=== PATIENT | male | born 1945 | race Caucasian/White ===

== ENCOUNTER → 2017-06-17 | Outpatient (CLI) | payer MEDICARE, OTHER | END | disposition home or self-care (01) | LOC: C/S 10:49 | DX: R51 Headache (principal); I10 Essential (primary) hypertension; E11.8 Type 2 diabetes mellitus with unspecified complications | CPT/HCPCS: 70450 ==

== ENCOUNTER 2017-12-17 03:29 | Inpatient (IN) | payer MEDICARE, OTHER ==
[2017-12-17 03:38] LABS: ADD MAN DIFF? NO
[2017-12-17 03:39] LABS: BASOPHILS % 0.9 % (0.0-2.0); EOSINOPHILS # 0.2 10^3/ul (0.0-0.5); EOSINOPHILS % 5.3 % (0.0-7.0); HEMATOCRIT 37.4 % (42.0-52.0); HEMOGLOBIN 12.5 g/dl (14.0-18.0); LYMPHOCYTES # 1.4 10^3/ul (0.8-2.9); LYMPHOCYTES % 31.4 % (15.0-51.0); MEAN CORPUSCULAR HEMOGLOBIN 30.6 pg (29.0-33.0); MEAN CORPUSCULAR HGB CONC 33.4 g/dl (32.0-37.0); MEAN CORPUSCULAR VOLUME 91.7 fl (82.0-101.0); MEAN PLATELET VOLUME 10.8 fl (7.4-10.4); MONOCYTE # 0.6 10^3/ul (0.3-0.9); MONOCYTES % 12.2 % (0.0-11.0); NEUTROPHIL # 2.2 10^3/ul (1.6-7.5); NEUTROPHILS % 49.1 % (39.0-77.0); PLATELET COUNT 203 10^3/UL (140-415); RED BLOOD COUNT 4.08 10^6/ul (4.70-6.10); RED CELL DISTRIBUTION WIDTH 13.2 % (11.5-14.5)
[2017-12-17 03:39] LABS: WHITE BLOOD COUNT 4.5 10^3/ul (4.8-10.8)
[2017-12-17 03:56] LABS: ANION GAP 11 (5-13); BLOOD UREA NITROGEN 30 mg/dl (7-20); CALCIUM 9.4 mg/dl (8.4-10.2); CARBON DIOXIDE 23 mmol/L (21-31); CHLORIDE 110 mmol/L (97-110); CHOL/HDL RATIO 7.3 RATIO; CHOLESTEROL 301 mg/dl (100-200); CREATINE KINASE 157 IU/L (23-200); CREATININE 1.47 mg/dl (0.61-1.24); GLUCOSE 157 mg/dl (70-220); HDL CHOLESTEROL 41 mg/dl (31-75); LDL CHOLESTEROL,CALCULATED 219 mg/dl; POTASSIUM 4.5 mmol/L (3.5-5.1); SODIUM 144 mmol/L (135-144); TRIGLYCERIDES 206 mg/dl (0-149)
[2017-12-17 03:58] LABS: HEMOGLOBIN A1C 8.4 % (0-5.9)
[2017-12-17 03:58] LABS: INR 0.93; PROTIME 12.5 Sec (11.9-14.9)
[2017-12-17 04:00] LABS: ETHANOL < 10.0 mg/dl
[2017-12-17 04:08] LABS: CK-MB 3.11 ng/ml (0.0-2.4); TROPONIN-I < 0.012 ng/ml (0.000-0.120)
[2017-12-17 04:20] LABS: ADD UMIC YES; UR ASCORBIC ACID NEGATIVE (NEGATIVE); UR BACTERIA FEW /HPF (NONE SEEN); UR BILIRUBIN (Dip) NEGATIVE (NEGATIVE); UR BLOOD (Dip) 1+ mg/dL (NEGATIVE); UR CLARITY CLEAR (CLEAR); UR COLOR STRAW (YELLOW); UR GLUCOSE (Dip) 1+ mg/dL (NEGATIVE); UR KETONES (Dip) NEGATIVE (NEGATIVE); UR LEUKOCYTE ESTERASE (Dip) NEGATIVE Leu/ul (NEGATIVE); UR MUCUS FEW /HPF (NONE SEEN); UR NITRITE (Dip) NEGATIVE (NEGATIVE); UR RBC 1 /HPF (0-5); UR SPECIFIC GRAVITY (Dip) 1.009 (1.003-1.030); UR TOTAL PROTEIN (Dip) NEGATIVE (NEGATIVE); UR UROBILINOGEN (Dip) NEGATIVE (NEGATIVE); UR WBC 0 /HPF (0-5)
[2017-12-17 04:32] LABS: AMPHETAMINE/METHAMPHETAMINE Negative (NEGATIVE); BARBITURATES Negative (NEGATIVE); BENZODIAZEPINES Negative (NEGATIVE); CANNABINOIDS Negative (NEGATIVE); COCAINE Negative (NEGATIVE); OPIATES Negative (NEGATIVE)
[2017-12-17] MEDS: SOD CHLORIDE 0.9% 100 ML (04:42)
[2017-12-17] MEDS: IODIXANOL LOCM 100 ML BTL (04:43)
[2017-12-17] MEDS ORDERED: ACETAMINOPHEN 325 MG TAB PO (06:00)
[2017-12-17] MEDS ORDERED: ONDANSETRON 4 MG INJ IV (06:00)
[2017-12-17] MEDS ORDERED: DEXTROSE 50% 50 ML SYRINGE IV ×2 (11:30)
[2017-12-17] MEDS ORDERED: GLUCAGON 1 MG INJ IM (11:30)
[2017-12-17] MEDS ORDERED: GLUCOSE GEL 15 GRAM TUBE BUCCAL (11:30)
[2017-12-17] MEDS ORDERED: GLUCOSE GEL 15 GRAM TUBE PO ×2 (11:30)
[2017-12-17] MEDS: INSULIN ASPART [NOVOLOG] 3 ML PEN SC ×3 (11:47→21:00)
[2017-12-17] MEDS: DEXTROSE 5%-0.45% NACL 1,000 ML IV (12:12)
[2017-12-17] MEDS: ENOXAPARIN 40 MG/0.4 ML SYG SC (14:19)
[2017-12-18] MEDS: hydrALAzine 20 MG INJ IV ×2 (04:12→20:27)
[2017-12-18] MEDS: PANTOPRAZOLE 40 MG INJ IV (05:56)
[2017-12-18 06:28] LABS: ADD MAN DIFF? NO
[2017-12-18 06:33] LABS: WHITE BLOOD COUNT 7.1 10^3/ul (4.8-10.8)
[2017-12-18 06:33] LABS: BASOPHILS % 0.4 % (0.0-2.0); EOSINOPHILS # 0.1 10^3/ul (0.0-0.5); EOSINOPHILS % 1.4 % (0.0-7.0); HEMOGLOBIN 12.8 g/dl (14.0-18.0); LYMPHOCYTES # 1.2 10^3/ul (0.8-2.9); LYMPHOCYTES % 16.3 % (15.0-51.0); MEAN CORPUSCULAR HEMOGLOBIN 30.5 pg (29.0-33.0); MEAN CORPUSCULAR HGB CONC 33.7 g/dl (32.0-37.0); MEAN CORPUSCULAR VOLUME 90.7 fl (82.0-101.0); MONOCYTE # 0.8 10^3/ul (0.3-0.9); MONOCYTES % 10.6 % (0.0-11.0); NEUTROPHILS % 70.9 % (39.0-77.0); PLATELET COUNT 207 10^3/UL (140-415); RED BLOOD COUNT 4.19 10^6/ul (4.70-6.10); RED CELL DISTRIBUTION WIDTH 13.4 % (11.5-14.5)
[2017-12-18 07:15] LABS: ANION GAP 10 (5-13); BLOOD UREA NITROGEN 27 mg/dl (7-20); CARBON DIOXIDE 22 mmol/L (21-31); CHLORIDE 110 mmol/L (97-110); CHOL/HDL RATIO 12.5 RATIO; CHOLESTEROL 314 mg/dl (100-200); CREATININE 1.16 mg/dl (0.61-1.24); GLUCOSE 153 mg/dl (70-220); HDL CHOLESTEROL 25 mg/dl (31-75); LDL CHOLESTEROL,CALCULATED 221 mg/dl; SODIUM 142 mmol/L (135-144); TRIGLYCERIDES 340 mg/dl (0-149)
[2017-12-18 07:25] LABS: POTASSIUM 4.1 mmol/L (3.5-5.1)
[2017-12-18] MEDS: INSULIN ASPART [NOVOLOG] 3 ML PEN SC ×5 (07:29→20:36)
[2017-12-18] MEDS: ENOXAPARIN 40 MG/0.4 ML SYG SC (08:29)
[2017-12-18] MEDS: DEXTROSE 5%-0.45% NACL 1,000 ML IV (12:09)
[2017-12-19] MEDS: INSULIN ASPART [NOVOLOG] 3 ML PEN SC ×6 (00:51→21:21)
[2017-12-19] MEDS: PANTOPRAZOLE 40 MG INJ IV (05:12)
[2017-12-19] MEDS ORDERED: ROCURONIUM 50 MG INJ ×2 (07:00→23:50)
[2017-12-19] MEDS ORDERED: ASPIRIN 81 MG TAB NGT (09:00)
[2017-12-19] MEDS: hydrALAzine 20 MG INJ IV ×2 (11:38→18:29)
[2017-12-19] MEDS: ENOXAPARIN 40 MG/0.4 ML SYG SC (11:40)
[2017-12-19] MEDS: METOPROLOL 5 MG INJ IV (17:12)
[2017-12-19 19:03] LABS: AMMONIA 21 umol/l (9-30)
[2017-12-19] MEDS: SOD CHLORIDE 0.45% 1,000 ML IV (20:56)
[2017-12-19] MEDS: CLONIDINE 0.1 MG/24 HR PATCH TRANSDERM (20:57)
[2017-12-19] MEDS ORDERED: ETOMIDATE 20 MG INJ (23:50)
[2017-12-19] MEDS ORDERED: CEFAZOLIN 1 GM INJ (23:50)
[2017-12-19] MEDS ORDERED: MIDAZOLAM 1 MG/ML 2 ML INJ (23:50)
[2017-12-19] MEDS ORDERED: PHENYLephrine (100 MCG/ML) 5ML SYG (23:51)
[2017-12-20] MEDS ORDERED: FENTAnyl 50 MCG/ML VIAL IV ×3
[2017-12-20] MEDS ORDERED: ALBUMIN HUMAN 5% 250 ML IV
[2017-12-20] MEDS ORDERED: METOCLOPRAMIDE 10 MG INJ IV
[2017-12-20] MEDS ORDERED: EPHEDrine SULFATE 50 MG/5 ML SYG IV
[2017-12-20] MEDS ORDERED: LABETALOL HCL 20MG INJ IV
[2017-12-20] MEDS ORDERED: DIPHENHYDRAMINE 50 MG INJ IV
[2017-12-20] MEDS ORDERED: MEPERIDINE 25 MG INJ IV
[2017-12-20] MEDS ORDERED: HYDROmorphONE 0.5 MG/0.5 ML SYG IV ×3
[2017-12-20] MEDS ORDERED: hydrALAzine 20 MG INJ IV
[2017-12-20] MEDS ORDERED: LABETALOL HCL 20MG INJ (00:30)
[2017-12-20] MEDS ORDERED: LIDOCAINE 1%/EPI 30 ML INJ (00:46)
[2017-12-20] MEDS ORDERED: ONDANSETRON 4 MG INJ (00:51)
[2017-12-20] MEDS ORDERED: DEXAMETHASONE 4 MG/ML 1 ML INJ (00:51)
[2017-12-20] MEDS ORDERED: METOCLOPRAMIDE 10 MG INJ (00:51)
[2017-12-20] MEDS ORDERED: ACETAMINOPHEN 1000MG/100ML IV 100 ML (00:52)
[2017-12-20] MEDS ORDERED: GELATIN SIZE 100 SPONGE (01:15)
[2017-12-20] MEDS ORDERED: THROMBIN 5000 UNIT VIAL (01:15)
[2017-12-20] MEDS ORDERED: PHENYLephrine (100 MCG/ML) 5ML SYG ×2 (01:44→02:38)
[2017-12-20] MEDS ORDERED: ALBUMIN HUMAN 5% 500 ML (01:56)
[2017-12-20] MEDS ORDERED: ACCU-CHEK XX (02:00)
[2017-12-20] MEDS ORDERED: NEOMYC/POLYMYX/BACIT 30 GM OINT (02:09)
[2017-12-20] MEDS ORDERED: EPHEDrine SULFATE 50 MG/5 ML SYG (02:15)
[2017-12-20 02:22] LABS: IMMEDIATE SPIN CROSSMATCH 1 4
[2017-12-20] MEDS ORDERED: CEFAZOLIN 1 GM INJ (02:36)
[2017-12-20] MEDS ORDERED: HYDROmorphONE 2 MG/ML SYG (03:12)
[2017-12-20] MEDS ORDERED: hydrALAzine 20 MG INJ (03:12)
[2017-12-20] MEDS ORDERED: ONDANSETRON 4 MG INJ IV ×2 (04:00)
[2017-12-20] MEDS: METOPROLOL 5 MG INJ IV ×4 (06:00→17:29)
[2017-12-20] MEDS ORDERED: DEXTROSE 50% 50 ML SYRINGE IV ×2 (06:00)
[2017-12-20 06:32] LABS: AADO2 Arterial 95.8 mmHg (7.0-24.0); Arterial Base Excess -6.8 mmol/L (-3.0-3); Arterial COHb 0.4 % (0.0-3.0); Arterial Fraction of Oxyhgb 97.2 % (93.0-99.0); Arterial HCO3 19.8 mmol/L (22.0-26.0); Arterial MetHb 0.4 % (0.0-1.5); Arterial Total Hemglobin 12.3 g/dl (12.0-18.0); Arterial pCO2 43.9 mmhg (35-45); MODE VENT - AC; Site A-Line
[2017-12-20] MEDS: INSULIN HUMAN REGULAR 100 UNIT in SOD CHLORIDE 0.9% 99 ML IV (06:47)
[2017-12-20] MEDS: PANTOPRAZOLE 40 MG INJ IV (06:51)
[2017-12-20] MEDS: CEFAZOLIN 1 GM/50 ML (PMX) 50 ML IVPB ×3 (06:51→17:49)
[2017-12-20] MEDS: ACCU-CHEK XX ×18 (06:55→23:29)
[2017-12-20] MEDS: INSULIN REGULAR, HUMAN 100 UNIT/1 ML 3ML VIAL SC (07:00)
[2017-12-20 07:37] LABS: ADD MAN DIFF? NO
[2017-12-20 07:41] LABS: ABNORMAL IP MESSAGE 1; BASOPHILS % 0.1 % (0.0-2.0); HEMATOCRIT 26.4 % (42.0-52.0); HEMOGLOBIN 8.8 g/dl (14.0-18.0); LYMPHOCYTES # 0.4 10^3/ul (0.8-2.9); LYMPHOCYTES % 3.8 % (15.0-51.0); MEAN CORPUSCULAR HEMOGLOBIN 31.4 pg (29.0-33.0); MEAN CORPUSCULAR HGB CONC 33.3 g/dl (32.0-37.0); MEAN CORPUSCULAR VOLUME 94.3 fl (82.0-101.0); MEAN PLATELET VOLUME 11.3 fl (7.4-10.4); MONOCYTE # 0.6 10^3/ul (0.3-0.9); MONOCYTES % 5.8 % (0.0-11.0); NEUTROPHIL # 8.7 10^3/ul (1.6-7.5); NEUTROPHILS % 89.6 % (39.0-77.0); PLATELET COUNT 167 10^3/UL (140-415); POSITIVE DIFF @See below; RED CELL DISTRIBUTION WIDTH 13.6 % (11.5-14.5)
[2017-12-20 07:41] LABS: WHITE BLOOD COUNT 9.7 10^3/ul (4.8-10.8)
[2017-12-20 07:51] LABS: ALANINE AMINOTRANSFERASE 44 IU/L (13-69); ALBUMIN 3.2 g/dl (3.3-4.9); ALBUMIN/GLOBULIN RATIO 1.28; ALKALINE PHOSPHATASE 61 IU/L (42-121); ANION GAP 10 (5-13); ASPARTATE AMINO TRANSFERASE 46 IU/L (15-46); BILIRUBIN,INDIRECT 0.2 mg/dl (0-1.1); BILIRUBIN,TOTAL 0.2 mg/dl (0.2-1.3); BLOOD UREA NITROGEN 33 mg/dl (7-20); CALCIUM 6.8 mg/dl (8.4-10.2); CARBON DIOXIDE 19 mmol/L (21-31); CHLORIDE 118 mmol/L (97-110); CREATININE 1.03 mg/dl (0.61-1.24); GLUCOSE 236 mg/dl (70-220); MAGNESIUM 1.9 mg/dl (1.7-2.5); POTASSIUM 3.9 mmol/L (3.5-5.1); SODIUM 147 mmol/L (135-144); TOTAL PROTEIN 5.7 g/dl (6.1-8.1)
[2017-12-20 08:33] LABS: AADO2 Arterial 117.5 mmHg (7.0-24.0); Arterial Base Excess -4.4 mmol/L (-3.0-3); Arterial Blood Gas Oxygen Sat 97.6 mmHG (95.0-100.0); Arterial COHb 0.3 % (0.0-3.0); Arterial Fraction of Oxyhgb 97.2 % (93.0-99.0); Arterial HCO3 19.8 mmol/L (22.0-26.0); Arterial MetHb 0.1 % (0.0-1.5); Arterial Total Hemglobin 9.9 g/dl (12.0-18.0); Arterial pCO2 33.2 mmhg (35-45); MODE VENT - AC; Site A-Line
[2017-12-20] MEDS: morphine 2 MG INJ IV (09:09)
[2017-12-20 09:18] LABS: OSMOLALITY 323 mOsm/kg (280-295)
[2017-12-20] MEDS: MANNITOL 25% 50 ML INJ IV* ×4 (09:28→15:00)
[2017-12-20] MEDS: MANNITOL 25% 100 ML IV ×2 (12:51→15:17)
[2017-12-20] MEDS: MANNITOL 20% 125 ML IV ×2 (16:00→20:00)
[2017-12-20] MEDS: SOD CHLORIDE 0.45% 1,000 ML IV (17:29)
[2017-12-20] MEDS: SOD CHLORIDE 0.9% 250 ML IV (21:07)
[2017-12-20] MEDS: ALBUMIN HUMAN 25% 100 ML IV (21:07)
[2017-12-20 21:12] LABS: HEMATOCRIT 26.4 % (42.0-52.0); HEMOGLOBIN 8.7 g/dl (14.0-18.0)
[2017-12-21] MEDS: ACCU-CHEK XX ×24 (00:45→23:13)
[2017-12-21] MEDS: CEFAZOLIN 1 GM/50 ML (PMX) 50 ML IVPB ×2 (01:04→05:28)
[2017-12-21] MEDS: LEVETIRACETAM 500 MG (PMX) 100 ML IVPB ×3 (01:04→21:51)
[2017-12-21] MEDS: MANNITOL 20% 125 ML IV ×6 (02:13→20:00)
[2017-12-21 02:59] LABS: ADD MAN DIFF? NO
[2017-12-21 03:01] LABS: WHITE BLOOD COUNT 5.9 10^3/ul (4.8-10.8)
[2017-12-21 03:01] LABS: BASOPHILS % 0.2 % (0.0-2.0); HEMATOCRIT 23.6 % (42.0-52.0); HEMOGLOBIN 7.6 g/dl (14.0-18.0); LYMPHOCYTES # 0.8 10^3/ul (0.8-2.9); LYMPHOCYTES % 13.7 % (15.0-51.0); MEAN CORPUSCULAR HEMOGLOBIN 30.4 pg (29.0-33.0); MEAN CORPUSCULAR HGB CONC 32.2 g/dl (32.0-37.0); MEAN CORPUSCULAR VOLUME 94.4 fl (82.0-101.0); MEAN PLATELET VOLUME 10.4 fl (7.4-10.4); MONOCYTE # 0.6 10^3/ul (0.3-0.9); MONOCYTES % 10.9 % (0.0-11.0); NEUTROPHIL # 4.4 10^3/ul (1.6-7.5); NEUTROPHILS % 74.9 % (39.0-77.0); PLATELET COUNT 156 10^3/UL (140-415); RED CELL DISTRIBUTION WIDTH 14.1 % (11.5-14.5)
[2017-12-21 03:17] LABS: ANION GAP 8 (5-13); BLOOD UREA NITROGEN 38 mg/dl (7-20); CALCIUM 8.2 mg/dl (8.4-10.2); CARBON DIOXIDE 16 mmol/L (21-31); CHLORIDE 136 mmol/L (97-110); CREATININE 1.77 mg/dl (0.61-1.24); GLUCOSE 101 mg/dl (70-220); SODIUM 160 mmol/L (135-144)
[2017-12-21 03:21] LABS: PHOSPHORUS 0.8 mg/dl (2.5-4.9)
[2017-12-21 03:21] LABS: MAGNESIUM 2.4 mg/dl (1.7-2.5)
[2017-12-21] MEDS: PANTOPRAZOLE 40 MG INJ IV (05:28)
[2017-12-21] MEDS: NORepinephrine 8MG/250 ML (PMX 250 ML IV ×2 (05:36→09:41)
[2017-12-21 05:41] LABS: SODIUM,URINE RANDOM < 13 mmol/L (30-90)
[2017-12-21] MEDS: METOPROLOL 5 MG INJ IV ×3 (05:55→12:00)
[2017-12-21] MEDS: POTASSIUM PHOSPHATE 40 MEQ in SOD CHLORIDE 0.9% 250 ML IVPB (06:38)
[2017-12-21 07:15] LABS: HEMATOCRIT 24.6 % (42.0-52.0)
[2017-12-21 07:22] LABS: AADO2 Arterial 72.2 mmHg (7.0-24.0); Arterial Base Excess -6.8 mmol/L (-3.0-3); Arterial Blood Gas Oxygen Sat 97.1 mmHG (95.0-100.0); Arterial COHb 0.3 % (0.0-3.0); Arterial Fraction of Oxyhgb 96.5 % (93.0-99.0); Arterial MetHb 0.3 % (0.0-1.5); Arterial Total Hemglobin 9.3 g/dl (12.0-18.0); Arterial pCO2 28.4 mmhg (35-45); MODE VENT - AC; Site A-Line
[2017-12-21 08:02] LABS: ANION GAP 10 (5-13); BLOOD UREA NITROGEN 40 mg/dl (7-20); CALCIUM 8.7 mg/dl (8.4-10.2); CARBON DIOXIDE 14 mmol/L (21-31); CHLORIDE 135 mmol/L (97-110); CREATININE 2.05 mg/dl (0.61-1.24); GLUCOSE 124 mg/dl (70-220); SODIUM 159 mmol/L (135-144)
[2017-12-21 08:04] LABS: POTASSIUM 2.7 mmol/L (3.5-5.1)
[2017-12-21] MEDS: POTASSIUM CHLORIDE 100 ML IVPB ×4 (08:30→20:23)
[2017-12-21] MEDS: LIDOCAINE 1% (MPF) 5 ML VIAL SC ×2 (12:30→13:00)
[2017-12-21] MEDS ORDERED: VANCOMYCIN IV PER PHARMACY XX (12:30)
[2017-12-21] MEDS: CEFTRIAXONE 1 GM/50 ML (PMX) 50 ML IVPB (13:56)
[2017-12-21 16:17] LABS: ANION GAP 9 (5-13); BLOOD UREA NITROGEN 38 mg/dl (7-20); CARBON DIOXIDE 14 mmol/L (21-31); CHLORIDE 140 mmol/L (97-110); CREATININE 2.25 mg/dl (0.61-1.24); GLUCOSE 195 mg/dl (70-220)
[2017-12-21 16:20] LABS: SODIUM 163 mmol/L (135-144)
[2017-12-21 16:21] LABS: POTASSIUM 2.8 mmol/L (3.5-5.1)
[2017-12-21] MEDS ORDERED: NOREPINEPHRINE 8 MG/250 ML IV (16:30)
[2017-12-21] MEDS: SODIUM BICARBONATE (IV ADD) 50 MEQ in DEXTROSE 5% 950 ML IV (17:04)
[2017-12-21] MEDS ORDERED: POTASSIUM CHLORIDE 200 ML IVPB (17:53)
[2017-12-21] MEDS: VANCOMYCIN 1.25 GM in SOD CHLORIDE 0.9% 250 ML IVPB (18:30)
[2017-12-21] MEDS ORDERED: CEFAZOLIN 1 GM/50 ML (PMX) 50 ML IVPB (21:00)
[2017-12-21] MEDS: INSULIN HUMAN REGULAR 100 UNIT in SOD CHLORIDE 0.9% 99 ML IV (21:38)
[2017-12-21] MEDS: DEXTROSE 5% IV (21:59)
[2017-12-21] MEDS: NOREPINEPHRINE IV (21:59)
[2017-12-22] MEDS: ACCU-CHEK XX ×24 (00:18→23:00)
[2017-12-22 01:03] LABS: POTASSIUM 2.6 mmol/L (3.5-5.1)
[2017-12-22] MEDS: POTASSIUM CHLORIDE 50 ML IVPB ×7 (01:09→15:30)
[2017-12-22] MEDS: PHENYLephrine 40 MG in DEXTROSE 5% 496 ML IV (02:12)
[2017-12-22] MEDS: SODIUM BICARBONATE (IV ADD) 50 MEQ in DEXTROSE 5% 950 ML IV (02:44)
[2017-12-22 05:15] LABS: ADD MAN DIFF? NO
[2017-12-22 05:25] LABS: BASOPHILS % 0.4 % (0.0-2.0); EOSINOPHILS # 0.2 10^3/ul (0.0-0.5); EOSINOPHILS % 2.3 % (0.0-7.0); HEMATOCRIT 26.7 % (42.0-52.0); HEMOGLOBIN 8.4 g/dl (14.0-18.0); LYMPHOCYTES # 0.9 10^3/ul (0.8-2.9); LYMPHOCYTES % 11.2 % (15.0-51.0); MEAN CORPUSCULAR HEMOGLOBIN 30.4 pg (29.0-33.0); MEAN CORPUSCULAR HGB CONC 31.5 g/dl (32.0-37.0); MEAN CORPUSCULAR VOLUME 96.7 fl (82.0-101.0); MONOCYTE # 0.7 10^3/ul (0.3-0.9); NEUTROPHIL # 6.3 10^3/ul (1.6-7.5); NEUTROPHILS % 77.5 % (39.0-77.0); PLATELET COUNT 158 10^3/UL (140-415); RED BLOOD COUNT 2.76 10^6/ul (4.70-6.10); RED CELL DISTRIBUTION WIDTH 15.1 % (11.5-14.5)
[2017-12-22 05:25] LABS: WHITE BLOOD COUNT 8.1 10^3/ul (4.8-10.8)
[2017-12-22 05:57] LABS: ANION GAP 8 (5-13); BLOOD UREA NITROGEN 39 mg/dl (7-20); CALCIUM 9.1 mg/dl (8.4-10.2); CARBON DIOXIDE 15 mmol/L (21-31); CHLORIDE 143 mmol/L (97-110); CREATININE 2.55 mg/dl (0.61-1.24); GLUCOSE 212 mg/dl (70-220); MAGNESIUM 2.5 mg/dl (1.7-2.5); PHOSPHORUS 0.6 mg/dl (2.5-4.9)
[2017-12-22 05:59] LABS: POTASSIUM 2.6 mmol/L (3.5-5.1); SODIUM 166 mmol/L (135-144)
[2017-12-22] MEDS: PANTOPRAZOLE 40 MG INJ IV (06:13)
[2017-12-22] MEDS: INSULIN HUMAN REGULAR 100 UNIT in SOD CHLORIDE 0.9% 99 ML IV ×2 (07:30→21:07)
[2017-12-22 07:35] LABS: AADO2 Arterial 64.3 mmHg (7.0-24.0); Arterial Base Excess -9.1 mmol/L (-3.0-3); Arterial Blood Gas Oxygen Sat 97.4 mmHG (95.0-100.0); Arterial COHb 0.3 % (0.0-3.0); Arterial Fraction of Oxyhgb 96.8 % (93.0-99.0); Arterial HCO3 15.8 mmol/L (22.0-26.0); Arterial MetHb 0.3 % (0.0-1.5); Arterial Total Hemglobin 8.9 g/dl (12.0-18.0); Arterial pCO2 30.3 mmhg (35-45); MODE VENT - AC; Site A-Line
[2017-12-22] MEDS: POTASSIUM PHOSPHATE 15 MM in SOD CHLORIDE 0.9% 250 ML IVPB (09:00)
[2017-12-22] MEDS: NOREPINEPHRINE IV (10:00)
[2017-12-22] MEDS: DEXTROSE 5% IV (10:00)
[2017-12-22] MEDS: LEVETIRACETAM 500 MG (PMX) 100 ML IVPB ×2 (10:15→21:56)
[2017-12-22] MEDS: POTASSIUM PHOSPHATE 40 MEQ in SOD CHLORIDE 0.9% 250 ML IVPB (13:50)
[2017-12-22] MEDS ORDERED: VANCOMYCIN 750 MG in SOD CHLORIDE 0.9% 150 ML IVPB (16:00)
[2017-12-22] MEDS ORDERED: NORepinephrine 8MG/250 ML (PMX 250 ML (16:28)
[2017-12-22 16:53] LABS: ANION GAP 9 (5-13); BLOOD UREA NITROGEN 36 mg/dl (7-20); CALCIUM 8.9 mg/dl (8.4-10.2); CARBON DIOXIDE 13 mmol/L (21-31); CHLORIDE 142 mmol/L (97-110); CREATININE 2.53 mg/dl (0.61-1.24); GLUCOSE 227 mg/dl (70-220); POTASSIUM 4.2 mmol/L (3.5-5.1)
[2017-12-22 16:57] LABS: SODIUM 164 mmol/L (135-144)
[2017-12-22] MEDS: CEFTRIAXONE 1 GM/50 ML (PMX) 50 ML IVPB (18:17)
[2017-12-22] MEDS ORDERED: NORepinephrine 8MG/250 ML (PMX 250 ML IV (18:30)
[2017-12-23] MEDS: ACCU-CHEK XX ×25 (00:47→23:40)
[2017-12-23] MEDS: DEXTROSE 5% IV ×3 (01:59→21:14)
[2017-12-23] MEDS: NOREPINEPHRINE IV ×3 (01:59→21:14)
[2017-12-23] MEDS: PANTOPRAZOLE 40 MG INJ IV (05:45)
[2017-12-23] MEDS: INSULIN HUMAN REGULAR 100 UNIT in SOD CHLORIDE 0.9% 99 ML IV ×3 (07:31→20:23)
[2017-12-23 08:07] LABS: ADD MAN DIFF? NO
[2017-12-23 08:08] LABS: BASOPHILS % 0.3 % (0.0-2.0); EOSINOPHILS # 0.3 10^3/ul (0.0-0.5); EOSINOPHILS % 3.7 % (0.0-7.0); HEMATOCRIT 24.2 % (42.0-52.0); HEMOGLOBIN 7.6 g/dl (14.0-18.0); LYMPHOCYTES % 13.4 % (15.0-51.0); MEAN CORPUSCULAR HEMOGLOBIN 30.5 pg (29.0-33.0); MEAN CORPUSCULAR HGB CONC 31.4 g/dl (32.0-37.0); MEAN CORPUSCULAR VOLUME 97.2 fl (82.0-101.0); MEAN PLATELET VOLUME 11.8 fl (7.4-10.4); MONOCYTE # 0.6 10^3/ul (0.3-0.9); MONOCYTES % 7.8 % (0.0-11.0); NEUTROPHIL # 5.7 10^3/ul (1.6-7.5); NEUTROPHILS % 74.4 % (39.0-77.0); PLATELET COUNT 115 10^3/UL (140-415); RED BLOOD COUNT 2.49 10^6/ul (4.70-6.10); RED CELL DISTRIBUTION WIDTH 15.4 % (11.5-14.5)
[2017-12-23 08:08] LABS: WHITE BLOOD COUNT 7.7 10^3/ul (4.8-10.8)
[2017-12-23 08:53] LABS: ANION GAP 8 (5-13); BLOOD UREA NITROGEN 34 mg/dl (7-20); CALCIUM 8.6 mg/dl (8.4-10.2); CARBON DIOXIDE 15 mmol/L (21-31); CHLORIDE 142 mmol/L (97-110); CREATININE 2.57 mg/dl (0.61-1.24); GLUCOSE 258 mg/dl (70-220); POTASSIUM 3.8 mmol/L (3.5-5.1)
[2017-12-23 08:56] LABS: SODIUM 165 mmol/L (135-144)
[2017-12-23] MEDS: LEVETIRACETAM 500 MG (PMX) 100 ML IVPB ×2 (09:22→20:19)
[2017-12-23] MEDS: POTASSIUM CHLORIDE 50 ML IVPB (10:09)
[2017-12-23] MEDS: DEXTROSE 5% 1,000 ML IV ×2 (10:21→23:40)
[2017-12-23] MEDS: PHENYLephrine 40 MG in DEXTROSE 5% 496 ML IV (11:42)
[2017-12-23] MEDS: CEFTRIAXONE 1 GM/50 ML (PMX) 50 ML IVPB (12:31)
[2017-12-23] MEDS ORDERED: VANCOMYCIN IV PER PHARMACY XX (14:30)
[2017-12-23 15:18] LABS: ANION GAP 9 (5-13); BLOOD UREA NITROGEN 30 mg/dl (7-20); CALCIUM 8.2 mg/dl (8.4-10.2); CARBON DIOXIDE 15 mmol/L (21-31); CHLORIDE 138 mmol/L (97-110); CREATININE 2.41 mg/dl (0.61-1.24); GLUCOSE 325 mg/dl (70-220); POTASSIUM 3.7 mmol/L (3.5-5.1)
[2017-12-23 15:22] LABS: SODIUM 162 mmol/L (135-144)
[2017-12-23] MEDS ORDERED: VANCOMYCIN 750 MG in SOD CHLORIDE 0.9% 150 ML IVPB (18:00)
[2017-12-23] MEDS: VANCOMYCIN 750 MG in DEXTROSE 5% 150 ML IVPB (18:42)
[2017-12-24] MEDS: ACCU-CHEK XX ×23 (01:24→23:06)
[2017-12-24 05:37] LABS: WHITE BLOOD COUNT 5.5 10^3/ul (4.8-10.8)
[2017-12-24 05:37] LABS: ABNORMAL IP MESSAGE 1; HEMATOCRIT 20.8 % (42.0-52.0); MEAN CORPUSCULAR HGB CONC 31.7 g/dl (32.0-37.0); MEAN CORPUSCULAR VOLUME 97.7 fl (82.0-101.0); MEAN PLATELET VOLUME 11.5 fl (7.4-10.4); NUCLEATED RED BLOOD CELLS% 0.4 /100WBC (0.0-0.0); PLATELET COUNT 79 10^3/UL (140-415); POSITIVE DIFF @See below; RED BLOOD COUNT 2.13 10^6/ul (4.70-6.10); RED CELL DISTRIBUTION WIDTH 15.3 % (11.5-14.5)
[2017-12-24 05:49] LABS: ADD MAN DIFF? YES; HEMOGLOBIN 6.6 g/dl (14.0-18.0)
[2017-12-24 05:56] LABS: MAGNESIUM 1.9 mg/dl (1.7-2.5)
[2017-12-24 06:11] LABS: ANION GAP 6 (5-13); BLOOD UREA NITROGEN 29 mg/dl (7-20); CALCIUM 8.2 mg/dl (8.4-10.2); CARBON DIOXIDE 16 mmol/L (21-31); CHLORIDE 138 mmol/L (97-110); CREATININE 2.52 mg/dl (0.61-1.24); GLUCOSE 251 mg/dl (70-220); SODIUM 160 mmol/L (135-144)
[2017-12-24 06:26] LABS: ABNORMAL IP MESSAGE 1; HEMATOCRIT 19.6 % (42.0-52.0); MEAN CORPUSCULAR HEMOGLOBIN 30.6 pg (29.0-33.0); MEAN CORPUSCULAR HGB CONC 30.6 g/dl (32.0-37.0); MEAN PLATELET VOLUME 11.6 fl (7.4-10.4); PLATELET COUNT 83 10^3/UL (140-415); POSITIVE DIFF @See below; RED BLOOD COUNT 1.96 10^6/ul (4.70-6.10); RED CELL DISTRIBUTION WIDTH 15.3 % (11.5-14.5)
[2017-12-24 06:26] LABS: WHITE BLOOD COUNT 5.4 10^3/ul (4.8-10.8)
[2017-12-24] MEDS: PANTOPRAZOLE 40 MG INJ IV (06:30)
[2017-12-24 06:40] LABS: ANION GAP 7 (5-13); BLOOD UREA NITROGEN 28 mg/dl (7-20); CALCIUM 8.2 mg/dl (8.4-10.2); CARBON DIOXIDE 17 mmol/L (21-31); CHLORIDE 137 mmol/L (97-110); CREATININE 2.62 mg/dl (0.61-1.24); GLUCOSE 238 mg/dl (70-220); MAGNESIUM 1.8 mg/dl (1.7-2.5); POTASSIUM 3.9 mmol/L (3.5-5.1)
[2017-12-24 06:42] LABS: ADD MAN DIFF? YES
[2017-12-24 06:45] LABS: SODIUM 161 mmol/L (135-144)
[2017-12-24 07:32] LABS: ANISOCYTOSIS 1+ (0-0); BAND NEUTROPHILS #M 0.7 10^3/ul (0.0-0.6); BAND NEUTROPHILS % (M) 13 % (0-4); EOSINOPHILS % (M) 3 % (0-7); ERYTHROBLAST% (NRBC) (M) 1 % (0-0); GIANT THROMBO% (M) 1 % (0-0); LYMPHOCYTES #M 1.2 10^3/ul (0.8-2.9); LYMPHOCYTES % (M) 23 % (15-51); MICROCYTOSIS 1+ (0-0); MONOCYTE #M 0.2 10^3/ul (0.3-0.9); MONOCYTES % (M) 4 % (0-11); PLATELET ESTIMATE DECREASED; SEG NEUT #M 3.2 10^3/ul (1.6-7.5); SEGMENTED NEUTROPHILS (M) % 57 % (39-77); SPHEROCYTES 1+ (0-0)
[2017-12-24] MEDS: INSULIN HUMAN REGULAR 100 UNIT in SOD CHLORIDE 0.9% 99 ML IV ×6 (07:58→20:20)
[2017-12-24 08:54] LABS: ANISOCYTOSIS 2+ (0-0); BAND NEUTROPHILS #M 0.9 10^3/ul (0.0-0.6); BAND NEUTROPHILS % (M) 18 % (0-4); BASOPHILS % (M) 1 % (0-2); BURR CELLS 1+ (0-0); EOSINOPHILS % (M) 5 % (0-7); LYMPHOCYTES #M 0.7 10^3/ul (0.8-2.9); LYMPHOCYTES % (M) 14 % (15-51); MICROCYTOSIS 2+ (0-0); MONOCYTE #M 0.2 10^3/ul (0.3-0.9); MONOCYTES % (M) 4 % (0-11); PLATELET ESTIMATE DECREASED; POIKILOCYTOSIS 1+ (0-0); POLYCHROMASIA 1+ (0-0); SEG NEUT #M 3.2 10^3/ul (1.6-7.5); SEGMENTED NEUTROPHILS (M) % 58 % (39-77); SMUDGE%M 10 % (0-0)
[2017-12-24] MEDS: LEVETIRACETAM 500 MG (PMX) 100 ML IVPB ×2 (09:03→21:25)
[2017-12-24 10:34] LABS: IMMEDIATE SPIN CROSSMATCH 1 2
[2017-12-24] MEDS: CEFTRIAXONE 1 GM/50 ML (PMX) 50 ML IVPB (12:26)
[2017-12-24] MEDS: DEXTROSE 5% 1,000 ML IV (14:39)
[2017-12-24] MEDS: DEXTROSE 5% IV (15:33)
[2017-12-24] MEDS: NOREPINEPHRINE IV (15:33)
[2017-12-25] MEDS: ACCU-CHEK XX ×24 (01:44→23:00)
[2017-12-25] MEDS: INSULIN HUMAN REGULAR 100 UNIT in SOD CHLORIDE 0.9% 99 ML IV ×4 (02:33→18:07)
[2017-12-25 04:56] LABS: ABNORMAL IP MESSAGE 1; HEMATOCRIT 28.6 % (42.0-52.0); HEMOGLOBIN 9.3 g/dl (14.0-18.0); MEAN CORPUSCULAR HEMOGLOBIN 29.5 pg (29.0-33.0); MEAN CORPUSCULAR HGB CONC 32.5 g/dl (32.0-37.0); MEAN CORPUSCULAR VOLUME 90.8 fl (82.0-101.0); MEAN PLATELET VOLUME 11.4 fl (7.4-10.4); NUCLEATED RED BLOOD CELLS% 0.3 /100WBC (0.0-0.0); PLATELET COUNT 64 10^3/UL (140-415); POSITIVE DIFF @See below; RED BLOOD COUNT 3.15 10^6/ul (4.70-6.10); RED CELL DISTRIBUTION WIDTH 16.7 % (11.5-14.5)
[2017-12-25 04:56] LABS: WHITE BLOOD COUNT 6.2 10^3/ul (4.8-10.8)
[2017-12-25 05:02] LABS: ADD MAN DIFF? YES
[2017-12-25 05:22] LABS: ANION GAP 6 (5-13); BLOOD UREA NITROGEN 29 mg/dl (7-20); CALCIUM 8.2 mg/dl (8.4-10.2); CARBON DIOXIDE 18 mmol/L (21-31); CHLORIDE 134 mmol/L (97-110); CREATININE 2.76 mg/dl (0.61-1.24); GLUCOSE 271 mg/dl (70-220); POTASSIUM 3.9 mmol/L (3.5-5.1); SODIUM 158 mmol/L (135-144)
[2017-12-25] MEDS: PANTOPRAZOLE 40 MG INJ IV (05:53)
[2017-12-25] MEDS: VANCOMYCIN 750 MG in DEXTROSE 5% 150 ML IVPB (05:53)
[2017-12-25 07:38] LABS: ANISOCYTOSIS 1+ (0-0); BAND NEUTROPHILS #M 1.4 10^3/ul (0.0-0.6); BAND NEUTROPHILS % (M) 23 % (0-4); BASOPHILS % (M) 1 % (0-2); EOSINOPHILS % (M) 5 % (0-7); ERYTHROBLAST% (NRBC) (M) 1 % (0-0); LYMPHOCYTES #M 0.6 10^3/ul (0.8-2.9); LYMPHOCYTES % (M) 10 % (15-51); MICROCYTOSIS 1+ (0-0); MONOCYTE #M 0.2 10^3/ul (0.3-0.9); MONOCYTES % (M) 4 % (0-11); MYELOCYTES % (M) 1 % (0-0); PLATELET ESTIMATE SIG DECREASED; SEG NEUT #M 3.6 10^3/ul (1.6-7.5); SEGMENTED NEUTROPHILS (M) % 56 % (39-77); SMUDGE%M 36 % (0-0); SPHEROCYTES 1+ (0-0)
[2017-12-25] MEDS: DEXTROSE 5% 1,000 ML IV (07:59)
[2017-12-25] MEDS: LEVETIRACETAM 500 MG (PMX) 100 ML IVPB ×2 (09:02→20:58)
[2017-12-25] MEDS: CEFTRIAXONE 1 GM/50 ML (PMX) 50 ML IVPB (13:10)
[2017-12-25] MEDS: NOREPINEPHRINE IV (21:12)
[2017-12-25] MEDS: DEXTROSE 5% IV (21:12)
[2017-12-26] MEDS: DEXTROSE 5% 1,000 ML IV ×3 (00:34→16:10)
[2017-12-26] MEDS: INSULIN HUMAN REGULAR 100 UNIT in SOD CHLORIDE 0.9% 99 ML IV ×4 (00:36→18:50)
[2017-12-26] MEDS: ACCU-CHEK XX ×24 (01:12→23:04)
[2017-12-26 05:08] LABS: ADD MAN DIFF? NO
[2017-12-26] MEDS: PANTOPRAZOLE 40 MG INJ IV (05:12)
[2017-12-26 05:15] LABS: ABNORMAL IP MESSAGE 1; BASOPHILS % 0.2 % (0.0-2.0); EOSINOPHILS # 0.2 10^3/ul (0.0-0.5); EOSINOPHILS % 3.4 % (0.0-7.0); HEMATOCRIT 28.9 % (42.0-52.0); HEMOGLOBIN 9.2 g/dl (14.0-18.0); LYMPHOCYTES # 0.6 10^3/ul (0.8-2.9); MEAN CORPUSCULAR HEMOGLOBIN 29.2 pg (29.0-33.0); MEAN CORPUSCULAR HGB CONC 31.8 g/dl (32.0-37.0); MEAN CORPUSCULAR VOLUME 91.7 fl (82.0-101.0); MEAN PLATELET VOLUME 11.7 fl (7.4-10.4); MONOCYTE # 0.6 10^3/ul (0.3-0.9); MONOCYTES % 10.3 % (0.0-11.0); NEUTROPHIL # 4.3 10^3/ul (1.6-7.5); NEUTROPHILS % 74.4 % (39.0-77.0); NUCLEATED RED BLOOD CELLS% 0.5 /100WBC (0.0-0.0); PLATELET COUNT 55 10^3/UL (140-415); POSITIVE DIFF @See below; RED BLOOD COUNT 3.15 10^6/ul (4.70-6.10); RED CELL DISTRIBUTION WIDTH 15.9 % (11.5-14.5)
[2017-12-26 05:15] LABS: WHITE BLOOD COUNT 5.8 10^3/ul (4.8-10.8)
[2017-12-26 05:47] LABS: ANION GAP 7 (5-13); BLOOD UREA NITROGEN 31 mg/dl (7-20); CALCIUM 8.7 mg/dl (8.4-10.2); CARBON DIOXIDE 19 mmol/L (21-31); CHLORIDE 131 mmol/L (97-110); CREATININE 2.85 mg/dl (0.61-1.24); GLUCOSE 262 mg/dl (70-220); MAGNESIUM 1.7 mg/dl (1.7-2.5); PHOSPHORUS 2.9 mg/dl (2.5-4.9); POTASSIUM 3.6 mmol/L (3.5-5.1); SODIUM 157 mmol/L (135-144)
[2017-12-26 07:10] LABS: ANISOCYTOSIS 2+ (0-0); BAND NEUTROPHILS #M 0.5 10^3/ul (0.0-0.6); BAND NEUTROPHILS % (M) 9 % (0-4); BURR CELLS 2+ (0-0); EOSINOPHILS % (M) 2 % (0-7); ERYTHROBLAST% (NRBC) (M) 1 % (0-0); LYMPHOCYTES #M 0.4 10^3/ul (0.8-2.9); LYMPHOCYTES % (M) 8 % (15-51); MICROCYTOSIS 2+ (0-0); MONOCYTE #M 0.2 10^3/ul (0.3-0.9); MONOCYTES % (M) 4 % (0-11); PLASMAC%(M) 1 % (0); PLATELET ESTIMATE DECREASED; POIKILOCYTOSIS 2+ (0-0); SEG NEUT #M 4.4 10^3/ul (1.6-7.5); SEGMENTED NEUTROPHILS (M) % 76 % (39-77); SMUDGE%M 3 % (0-0); STOMATOCYTES 1+ (0-0); TEAR DROP CELLS 1+ (0-0)
[2017-12-26] MEDS: LEVETIRACETAM 500 MG (PMX) 100 ML IVPB ×2 (09:42→20:35)
[2017-12-26] MEDS: CEFTRIAXONE 1 GM/50 ML (PMX) 50 ML IVPB (12:52)
[2017-12-26 17:33] LABS: VANCOMYCIN,TROUGH 10.3 ug/ml (10.0-20.0)
[2017-12-26] MEDS: VANCOMYCIN 750 MG in DEXTROSE 5% 150 ML IVPB (18:02)
[2017-12-26] MEDS: DEXTROSE 5% IV (20:37)
[2017-12-26] MEDS: NOREPINEPHRINE IV (20:37)
[2017-12-27] MEDS: ACCU-CHEK XX ×25 (00:15→23:57)
[2017-12-27] MEDS: INSULIN HUMAN REGULAR 100 UNIT in SOD CHLORIDE 0.9% 99 ML IV ×6 (01:51→23:22)
[2017-12-27] MEDS: PANTOPRAZOLE 40 MG INJ IV (05:05)
[2017-12-27 05:14] LABS: ABNORMAL IP MESSAGE 1; HEMOGLOBIN 8.7 g/dl (14.0-18.0); MEAN CORPUSCULAR HEMOGLOBIN 29.7 pg (29.0-33.0); MEAN CORPUSCULAR HGB CONC 32.2 g/dl (32.0-37.0); MEAN CORPUSCULAR VOLUME 92.2 fl (82.0-101.0); MEAN PLATELET VOLUME 12.5 fl (7.4-10.4); NUCLEATED RED BLOOD CELLS% 0.7 /100WBC (0.0-0.0); PLATELET COUNT 44 10^3/UL (140-415); POSITIVE DIFF @See below; RED BLOOD COUNT 2.93 10^6/ul (4.70-6.10); RED CELL DISTRIBUTION WIDTH 15.8 % (11.5-14.5)
[2017-12-27 05:14] LABS: WHITE BLOOD COUNT 6.8 10^3/ul (4.8-10.8)
[2017-12-27 05:27] LABS: ADD MAN DIFF? YES
[2017-12-27 05:38] LABS: MAGNESIUM 1.8 mg/dl (1.7-2.5)
[2017-12-27 05:40] LABS: ALANINE AMINOTRANSFERASE 27 IU/L (13-69); ALBUMIN 2.3 g/dl (3.3-4.9); ALBUMIN/GLOBULIN RATIO 0.88; ALKALINE PHOSPHATASE 192 IU/L (42-121); ANION GAP 6 (5-13); ASPARTATE AMINO TRANSFERASE 94 IU/L (15-46); BILIRUBIN,INDIRECT 0.4 mg/dl (0-1.1); BILIRUBIN,TOTAL 0.4 mg/dl (0.2-1.3); BLOOD UREA NITROGEN 32 mg/dl (7-20); CALCIUM 8.6 mg/dl (8.4-10.2); CARBON DIOXIDE 18 mmol/L (21-31); CHLORIDE 130 mmol/L (97-110); CREATININE 3.08 mg/dl (0.61-1.24); GLUCOSE 280 mg/dl (70-220); POTASSIUM 3.6 mmol/L (3.5-5.1); SODIUM 154 mmol/L (135-144); TOTAL PROTEIN 4.9 g/dl (6.1-8.1)
[2017-12-27 07:02] LABS: ACANTHOCYTES 1+ (0-0); ANISOCYTOSIS 2+ (0-0); BAND NEUTROPHILS #M 0.8 10^3/ul (0.0-0.6); BAND NEUTROPHILS % (M) 13 % (0-4); BURR CELLS 1+ (0-0); EOSINOPHILS % (M) 5 % (0-7); ERYTHROBLAST% (NRBC) (M) 1 % (0-0); LYMPHOCYTES #M 0.7 10^3/ul (0.8-2.9); LYMPHOCYTES % (M) 11 % (15-51); MICROCYTOSIS 2+ (0-0); MONOCYTE #M 0.4 10^3/ul (0.3-0.9); MONOCYTES % (M) 7 % (0-11); PLATELET ESTIMATE SIG DECREASED; POIKILOCYTOSIS 1+ (0-0); POLYCHROMASIA 3+ (0-0); SEG NEUT #M 4.4 10^3/ul (1.6-7.5); SEGMENTED NEUTROPHILS (M) % 64 % (39-77); SMUDGE%M 1 % (0-0)
[2017-12-27] MEDS: LEVETIRACETAM 500 MG (PMX) 100 ML IVPB ×2 (08:55→20:58)
[2017-12-27] MEDS: DEXTROSE 5% 1,000 ML IV ×2 (09:42→16:05)
[2017-12-27] MEDS: CEFTRIAXONE 1 GM/50 ML (PMX) 50 ML IVPB (12:28)
[2017-12-27] MEDS: NOREPINEPHRINE IV (13:29)
[2017-12-27] MEDS: DEXTROSE 5% IV (13:29)
[2017-12-28] MEDS: ACCU-CHEK XX ×23 (00:57→23:00)
[2017-12-28] MEDS: NOREPINEPHRINE IV ×2 (01:23→11:58)
[2017-12-28] MEDS: DEXTROSE 5% IV ×2 (01:23→11:58)
[2017-12-28] MEDS: INSULIN HUMAN REGULAR 100 UNIT in SOD CHLORIDE 0.9% 99 ML IV ×6 (02:50→20:37)
[2017-12-28] MEDS: DEXTROSE 5% 1,000 ML IV (04:23)
[2017-12-28] MEDS: PANTOPRAZOLE 40 MG INJ IV (05:01)
[2017-12-28] MEDS: VANCOMYCIN 750 MG in DEXTROSE 5% 150 ML IVPB (05:01)
[2017-12-28 05:14] LABS: WHITE BLOOD COUNT 7.2 10^3/ul (4.8-10.8)
[2017-12-28 05:14] LABS: ABNORMAL IP MESSAGE 1; HEMATOCRIT 25.4 % (42.0-52.0); HEMOGLOBIN 8.3 g/dl (14.0-18.0); MEAN CORPUSCULAR HEMOGLOBIN 29.5 pg (29.0-33.0); MEAN CORPUSCULAR HGB CONC 32.7 g/dl (32.0-37.0); MEAN CORPUSCULAR VOLUME 90.4 fl (82.0-101.0); MEAN PLATELET VOLUME 12.3 fl (7.4-10.4); NUCLEATED RED BLOOD CELLS% 1.1 /100WBC (0.0-0.0); POSITIVE DIFF @See below; RED BLOOD COUNT 2.81 10^6/ul (4.70-6.10); RED CELL DISTRIBUTION WIDTH 15.2 % (11.5-14.5)
[2017-12-28 05:33] LABS: ANION GAP 5 (5-13); BLOOD UREA NITROGEN 36 mg/dl (7-20); CALCIUM 8.7 mg/dl (8.4-10.2); CARBON DIOXIDE 18 mmol/L (21-31); CHLORIDE 124 mmol/L (97-110); CREATININE 3.22 mg/dl (0.61-1.24); GLUCOSE 399 mg/dl (70-220); PLATELET COUNT 37 10^3/UL (140-415); POTASSIUM 3.4 mmol/L (3.5-5.1); SODIUM 147 mmol/L (135-144)
[2017-12-28 05:34] LABS: ADD MAN DIFF? YES
[2017-12-28 05:35] LABS: MAGNESIUM 1.8 mg/dl (1.7-2.5)
[2017-12-28 05:35] LABS: PHOSPHORUS 3.2 mg/dl (2.5-4.9)
[2017-12-28 07:43] LABS: ANISOCYTOSIS 2+ (0-0); BAND NEUTROPHILS #M 1.4 10^3/ul (0.0-0.6); BAND NEUTROPHILS % (M) 20 % (0-4); BASOPHILS % (M) 1 % (0-2); EOSINOPHILS % (M) 3 % (0-7); GIANT THROMBO% (M) 1 % (0-0); LYMPHOCYTES #M 0.4 10^3/ul (0.8-2.9); LYMPHOCYTES % (M) 6 % (15-51); MICROCYTOSIS 2+ (0-0); MONOCYTE #M 0.3 10^3/ul (0.3-0.9); MONOCYTES % (M) 5 % (0-11); PLATELET ESTIMATE SIG DECREASED; POLYCHROMASIA 3+ (0-0); SEG NEUT #M 4.8 10^3/ul (1.6-7.5); SEGMENTED NEUTROPHILS (M) % 65 % (39-77); SMUDGE%M 6 % (0-0)
[2017-12-28] MEDS: LEVETIRACETAM 500 MG (PMX) 100 ML IVPB ×2 (09:08→21:28)
[2017-12-28] MEDS: POTASSIUM CHLORIDE 50 ML IVPB ×2 (09:46→10:54)
[2017-12-28] MEDS: HYDROCORTISONE 100 MG INJ IV ×2 (10:58→13:42)
[2017-12-28 13:52] LABS: ANION GAP 4 (5-13); BLOOD UREA NITROGEN 36 mg/dl (7-20); CARBON DIOXIDE 17 mmol/L (21-31); CHLORIDE 121 mmol/L (97-110); CREATININE 3.31 mg/dl (0.61-1.24); POTASSIUM 4.8 mmol/L (3.5-5.1); SODIUM 142 mmol/L (135-144)
[2017-12-28 13:55] LABS: GLUCOSE 402 mg/dl (70-220)
[2017-12-29] MEDS: HYDROCORTISONE 100 MG INJ IV ×4 (00:11→21:50)
[2017-12-29] MEDS: INSULIN HUMAN REGULAR 100 UNIT in SOD CHLORIDE 0.9% 99 ML IV ×7 (00:24→22:41)
[2017-12-29] MEDS: DEXTROSE 5% IV ×2 (00:27→10:09)
[2017-12-29] MEDS: NOREPINEPHRINE IV ×2 (00:27→10:09)
[2017-12-29] MEDS: ACCU-CHEK XX ×25 (01:00→23:34)
[2017-12-29] MEDS: PANTOPRAZOLE 40 MG INJ IV (05:51)
[2017-12-29] MEDS ORDERED: GLUCOSE GEL 15 GRAM TUBE PO ×2 (08:00)
[2017-12-29] MEDS ORDERED: GLUCAGON 1 MG INJ IM (08:00)
[2017-12-29] MEDS ORDERED: GLUCOSE GEL 15 GRAM TUBE BUCCAL (08:00)
[2017-12-29] MEDS ORDERED: DEXTROSE 50% 50 ML SYRINGE IV ×2 (08:00)
[2017-12-29] MEDS ORDERED: INSULIN GLARGINE [LANTus] (100 UNITS/ML) SYG SC (08:00)
[2017-12-29] MEDS ORDERED: [UNRECOGNIZED DRUG - OTHER] XX (10:00)
[2017-12-29] MEDS: LEVETIRACETAM 500 MG (PMX) 100 ML IVPB ×2 (10:08→20:53)
[2017-12-29] MEDS: INSULIN GLARGINE [LANTus] (100 UNITS/ML) SYG SC (10:10)
[2017-12-29 11:16] LABS: ANION GAP 7 (5-13); BLOOD UREA NITROGEN 42 mg/dl (7-20); CALCIUM 9.6 mg/dl (8.4-10.2); CARBON DIOXIDE 19 mmol/L (21-31); CHLORIDE 124 mmol/L (97-110); CREATININE 3.43 mg/dl (0.61-1.24); GLUCOSE 398 mg/dl (70-220); POTASSIUM 5.4 mmol/L (3.5-5.1); SODIUM 150 mmol/L (135-144)
[2017-12-29] MEDS: LORAZEPAM 2 MG INJ IV (13:09)
[2017-12-29] MEDS: BALSAM PERU/CASTOR OIL 60 GM TUBE TOP (20:53)
[2017-12-30] MEDS: ACCU-CHEK XX ×9 (01:24→09:19)
[2017-12-30] MEDS: DEXTROSE 5% IV (01:57)
[2017-12-30] MEDS: NOREPINEPHRINE IV (01:57)
[2017-12-30] MEDS: INSULIN HUMAN REGULAR 100 UNIT in SOD CHLORIDE 0.9% 99 ML IV (03:28)
[2017-12-30 04:54] LABS: ADD MAN DIFF? NO
[2017-12-30 04:58] LABS: ABNORMAL IP MESSAGE 1; BASOPHILS % 0.2 % (0.0-2.0); EOSINOPHILS % 0.1 % (0.0-7.0); HEMATOCRIT 25.2 % (42.0-52.0); LYMPHOCYTES # 1.4 10^3/ul (0.8-2.9); LYMPHOCYTES % 13.4 % (15.0-51.0); MEAN CORPUSCULAR HEMOGLOBIN 29.6 pg (29.0-33.0); MEAN CORPUSCULAR HGB CONC 31.7 g/dl (32.0-37.0); MEAN CORPUSCULAR VOLUME 93.3 fl (82.0-101.0); MEAN PLATELET VOLUME 12.7 fl (7.4-10.4); MONOCYTE # 0.7 10^3/ul (0.3-0.9); MONOCYTES % 6.6 % (0.0-11.0); NEUTROPHILS % 78.8 % (39.0-77.0); NUCLEATED RED BLOOD CELLS # 0.1 10^3/ul (0.0-0.0); NUCLEATED RED BLOOD CELLS% 1.1 /100WBC (0.0-0.0); PLATELET COUNT 62 10^3/UL (140-415); POSITIVE DIFF @See below; RED CELL DISTRIBUTION WIDTH 15.4 % (11.5-14.5)
[2017-12-30 04:58] LABS: WHITE BLOOD COUNT 10.2 10^3/ul (4.8-10.8)
[2017-12-30 05:22] LABS: MAGNESIUM 2.2 mg/dl (1.7-2.5)
[2017-12-30 05:22] LABS: PHOSPHORUS 3.4 mg/dl (2.5-4.9)
[2017-12-30 05:24] LABS: ANION GAP 4 (5-13); BLOOD UREA NITROGEN 48 mg/dl (7-20); CALCIUM 10.2 mg/dl (8.4-10.2); CARBON DIOXIDE 21 mmol/L (21-31); CHLORIDE 129 mmol/L (97-110); CREATININE 3.33 mg/dl (0.61-1.24); GLUCOSE 239 mg/dl (70-220); POTASSIUM 4.2 mmol/L (3.5-5.1); SODIUM 154 mmol/L (135-144)
[2017-12-30] MEDS: HYDROCORTISONE 100 MG INJ IV (06:00)
[2017-12-30] MEDS: PANTOPRAZOLE 40 MG INJ IV (06:00)
[2017-12-30] MEDS ORDERED: INSULIN GLARGINE [LANTus] (100 UNITS/ML) SYG SC (08:00)
[2017-12-30] MEDS: BALSAM PERU/CASTOR OIL 60 GM TUBE TOP (08:03)
[2017-12-30] MEDS: LEVETIRACETAM 500 MG (PMX) 100 ML IVPB (08:03)
[2017-12-30] MEDS: INSULIN GLARGINE [LANTus] (100 UNITS/ML) SYG SC (08:04)
[2017-12-30] MEDS ORDERED: LORAZEPAM 2 MG INJ IV (09:30)
[2017-12-30] MEDS: morphine (DRIP) 100 MG/100 ML 100 ML IV (10:39)
== END 2017-12-30 11:45 | disposition expired | DRG 23 ==
LOC: ICU 12-20 02:50 → E/R 03:29 → ICU 12-19 23:00 → TEL 05:57
PROC: 00N00ZZ Release Brain, Open Approach (ICD-10-PCS; principal; 2017-12-19 23:47)
PROC: 0NS00ZZ Reposition Skull, Open Approach (ICD-10-PCS; 2017-12-19 23:47)
PROC: 5A1955Z Respiratory Ventilation, Greater than 96 Consecutive Hours (ICD-10-PCS; 2017-12-19 23:47)
PROC: 02HV33Z Insertion of Infusion Device into Superior Vena Cava, Percutaneous Approach (ICD-10-PCS; 2017-12-19 23:47)
PROC: 30233N1 Transfusion of Nonautologous Red Blood Cells into Peripheral Vein, Percutaneous Approach (ICD-10-PCS; 2017-12-19 23:47)
DX: I63.511 Cerebral infarction due to unspecified occlusion or stenosis of right middle cerebral artery (principal); J96.01 Acute respiratory failure with hypoxia; G93.5 Compression of brain; I61.9 Nontraumatic intracerebral hemorrhage, unspecified; N17.0 Acute kidney failure with tubular necrosis; G93.6 Cerebral edema; A41.9 Sepsis, unspecified organism; R65.21 Severe sepsis with septic shock; I69.354 Hemiplegia and hemiparesis following cerebral infarction affecting left non-dominant side; G93.49 Other encephalopathy; E87.2 Acidosis; E87.0 Hyperosmolality and hypernatremia; I11.0 Hypertensive heart disease with heart failure; I50.9 Heart failure, unspecified; E11.9 Type 2 diabetes mellitus without complications; K21.9 Gastro-esophageal reflux disease without esophagitis; I65.23 Occlusion and stenosis of bilateral carotid arteries; E78.5 Hyperlipidemia, unspecified; E11.65 Type 2 diabetes mellitus with hyperglycemia; D64.9 Anemia, unspecified; B35.1 Tinea unguium; I70.0 Atherosclerosis of aorta; I25.10 Atherosclerotic heart disease of native coronary artery without angina pectoris; I63.523 Cerebral infarction due to unspecified occlusion or stenosis of bilateral anterior cerebral arteries; D69.6 Thrombocytopenia, unspecified; Z66 Do not resuscitate; R29.810 Facial weakness; Z79.4 Long term (current) use of insulin; Z95.1 Presence of aortocoronary bypass graft; Z95.0 Presence of cardiac pacemaker
CPT/HCPCS: 36415; 36430; 36569; 36600; 70450; 70496; 70498; 71045; 76937; 80048; 80053; 80061; 80202; 80307; 81001; 82140; 82533; 82550; 82553; 82803; 82962; 83036; 83735; 83930; 84100; 84132; 84300; 84484; 85014; 85018; 85025; 85610; 85730; 86850; 86900; 86901; 86920; 87040; 87081; 90686; 92526; 92610; 93005; 93306; 94002; 94003; 94770; 95819; 97163; 99291-25